=== PATIENT | male | born 1995 | race Caucasian/White ===

== ENCOUNTER 2017-08-13 08:57 | Emergency (ER) | payer SELFPAY ==
[2017-08-13 09:10] VITALS: BP 144/88
--- NOTE | 2017-08-13 09:34 | RAD ---
HISTORY: Left-sided rib pain, status post fall COMPARISONS: None VIEWS: 7, Frontal view of the chest with frontal and oblique views of the left hemithorax FINDINGS: There is no displaced rib fracture or pneumothorax. The visualized lungs are clear. IMPRESSION: NO DISPLACED RIB FRACTURE OR PNEUMOTHORAX
--- NOTE | 2017-08-13 09:39 | UC ---
Truncal Trauma HPI - HPI Summary HPI Summary: left side ribs pain x 1 week s/p fall one week ago and his his lest side on a tree trunk pain on his left ribs, increase pain with movement, deep breathing no fever, no chills, no cough , no sob - History Of Current Complaint Chief Complaint: UCGeneralIllness Stated Complaint: LEFT SIDE RIB PAIN Time Seen by Provider: 08/13/17 09:07 Hx Obtained From: Patient Onset/Duration: Sudden Onset, Lasting Weeks - 1, Still Present Onset Of Pain: Post Accident - s/p fall Severity Initially: Moderate Severity Currently: Moderate Pain Intensity: 8 Mechanism Of Injury: Blunt Trauma, Fall From A Standing Position Aggravating Factor(s): Movement, Deep Breathing Alleviating factor(s): Rest Associated Signs And Symptoms: Negative: SOB, Chest Pain, Cough, Hematuria, Abdominal Pain, Fever, Nausea, Vomiting - Allergies/Home Medications Allergies/Adverse Reactions: Allergies Allergy/AdvReac Type Severity Reaction Status Date / Time No Known Allergies Allergy Verified 08/13/17 09:07 Home Medications: Home Medications NK [No Home Medications Reported] 08/13/17 [History Confirmed 08/13/17] PMH/Surg Hx/FS Hx/Imm Hx - Additional Past Medical History Additional PMH: obesity Other History Of: Negative For: HIV, Hepatitis B, Hepatitis C, Anticoagulant Therapy - Surgical History Surgical History: None - Family History Known Family History: Positive: Cardiac Disease, Hypertension - Social History Alcohol Use: Occasionally Substance Use Type: None Smoking Status (MU): Heavy Every Day Tobacco Smoker Type: Cigarettes Amount Used/How Often: 1/2 PPD Length of Time of Smoking/Using Tobacco: 3 Years Have You Smoked in the Last Year: Yes Review of Systems Constitutional: Negative Skin: Negative Eyes: Negative ENT: Negative Respiratory: Negative Cardiovascular: Negative Gastrointestinal: Negative Is Patient Immunocompromised?: No All Other Systems Reviewed And Are Negative: Yes Physical Exam Triage Information Reviewed: Yes Appearance: Ill-Appearing, Pain Distress, Obese Vital Signs: Initial Vital Signs Temp 97.9 F 08/13/17 09:05 Pulse 79 08/13/17 09:05 Resp 18 08/13/17 09:05 BP 144/88 08/13/17 09:05 Pulse Ox 100 08/13/17 09:05 Vital Signs Reviewed: Yes Eyes: Positive: Conjunctiva Clear ENT: Positive: Normal ENT inspection, Hearing grossly normal, Pharynx normal Neck exam: Normal Neck: Positive: Supple, Nontender, No Lymphadenopathy Respiratory: Positive: Chest non-tender, Lungs clear, Normal breath sounds, No respiratory distress Cardiovascular: Positive: RRR, No Murmur, Pulses Normal Abdominal Exam: Normal Abdomen Description: Positive: Nontender, Soft. Negative: CVA Tenderness (R), CVA Tenderness (L), Distended, Guarding Bowel Sounds: Positive: Present Musculoskeletal: Positive: Other: - left ribs/ trunck : no swelling, no ecchymosis, + tenderness left anterior ribs, Skin Exam: Normal Diagnostics - Laboratory Diagnostic Studies Completed/Ordered: xray left ribs: IMPRESSION: NO DISPLACED RIB FRACTURE OR PNEUMOTHORAX Truncal Trauma Course/Dx - Differential Dx/Diagnosis Provider Diagnoses: contusion left ribs Discharge - Sign-Out/Discharge Documenting (check all that apply): Discharge/Admit/Transfer - Discharge Plan Condition: Stable Disposition: HOME Patient Education Materials: Rib Contusion (ED) Referrals: Non Staff,Doctor [Primary Care Provider] - If Needed - Billing Disposition and Condition Condition: STABLE Disposition: HOME
== END 2017-08-13 09:47 | disposition home or self-care (01) ==
LOC: UCCORT 08:57
DX: S20.20XA Contusion of thorax, unspecified, initial encounter (principal); W19.XXXA Unspecified fall, initial encounter; W22.8XXA Striking against or struck by other objects, initial encounter; Y92.9 Unspecified place or not applicable; F17.210 Nicotine dependence, cigarettes, uncomplicated
CPT/HCPCS: 99211; G0463

== ENCOUNTER 2018-07-16 12:05 | Emergency (ER) | payer BC, OTHER ==
[2018-07-16 12:56] VITALS: BP 156/82
--- NOTE | 2018-07-16 13:09 | UC ---
Abdominal Pain Male HPI - HPI Summary HPI Summary: pt s/o sudden onset of generalized malaise, abdominal discomfort, diarrhea and "just feeling off". Pt unsure of fever but does report that he has not had a "solid BM in 1 month". Pt has PCP but has not seen him in "forever". - History of Current Complaint Chief Complaint: UCGI Stated Complaint: SORE THROAT, HEADACHE, DIARRHEA Time Seen by Provider: 07/16/18 12:58 Hx Obtained From: Patient Onset/Duration: Sudden Onset, Lasting Hours, Still Present Timing: Constant Severity Initially: Mild Severity Currently: Mild Pain Intensity: 4 Location: Diffuse Radiates: No Character: Aching, Colicy, Cramping, Dull Aggravating Factor(s): Food Alleviating Factor(s): Spontaneous Resolution Associated Signs And Symptoms: Positive: Diarrhea - Risk Factors Testicular Torsion: Negative Cardiac Risk Factors: Negative - Allergies/Home Medications Allergies/Adverse Reactions: Allergies Allergy/AdvReac Type Severity Reaction Status Date / Time No Known Allergies Allergy Verified 07/16/18 12:50 PMH/Surg Hx/FS Hx/Imm Hx Previously Healthy: Yes Other History Of: Negative For: HIV, Hepatitis B, Hepatitis C, Anticoagulant Therapy - Surgical History Surgical History: None - Family History Known Family History: Positive: Cardiac Disease, Hypertension - Social History Occupation: Employed Full-time Lives: With Family Alcohol Use: Weekly Substance Use Type: Marijuana Substance Use Comment - Amount & Last Used: daily Smoking Status (MU): Heavy Every Day Tobacco Smoker Type: Cigarettes Amount Used/How Often: 1/2 PPD Length of Time of Smoking/Using Tobacco: 3 Years Have You Smoked in the Last Year: Yes - Immunization History Vaccination Up to Date: No Review of Systems All Other Systems Reviewed And Are Negative: Yes Constitutional: Positive: Chills, Fatigue Skin: Positive: Negative Eyes: Positive: Negative ENT: Positive: Negative - pt stated that his ST has resolved since onset yesterday . Respiratory: Positive: Cough Cardiovascular: Positive: Negative Gastrointestinal: Positive: Abdominal Pain, Diarrhea, Nausea Genitourinary: Positive: Negative Motor: Positive: Negative Neurovascular: Positive: Negative Musculoskeletal: Positive: Myalgia Neurological: Positive: Negative Psychological: Positive: Negative Is Patient Immunocompromised?: No Physical Exam Triage Information Reviewed: Yes Appearance: Well-Appearing, Obese Vital Signs: Initial Vital Signs Temp 97.3 F 07/16/18 12:51 Pulse 69 07/16/18 12:51 Resp 20 07/16/18 12:51 BP 156/82 07/16/18 12:51 Pulse Ox 100 07/16/18 12:51 Vital Signs Reviewed: Yes Eye Exam: Normal ENT Exam: Normal Dental Exam: Normal Neck exam: Normal Respiratory Exam: Normal Cardiovascular Exam: Normal Abdomen Description: Positive: Other: - LUQ tenderness Musculoskeletal Exam: Normal Neurological Exam: Normal Psychological Exam: Normal Skin Exam: Normal Abd Pain Male Course/Dx - Differential Dx/Clinical Impression Differential Diagnosis/HQI/PQRI: Pancreatitis, Other - abdominal pain Provider Diagnosis: Abdominal pain, Frequent loose stools, Malaise Discharge - Sign-Out/Discharge Documenting (check all that apply): Patient Departure All imaging exams completed and their final reports reviewed: No Studies - Discharge Plan Condition: Stable Disposition: HOME Patient Education Materials: Loperamide (By mouth), Acute Abdominal Pain (ED) Forms: *Work Release Referrals: Mc Alvarado MD [Primary Care Provider] - As Soon As Possible Additional Instructions: PLEASE FOLLOW UP WITH YOUR PCP SOON POSSIBLE. - Billing Disposition and Condition Condition: STABLE Disposition: Home
== END 2018-07-16 13:42 | disposition home or self-care (01) ==
LOC: UCCORT 12:05
DX: R10.9 Unspecified abdominal pain (principal); R53.81 Other malaise; R19.5 Other fecal abnormalities; R19.7 Diarrhea, unspecified; J02.9 Acute pharyngitis, unspecified; R51 Headache; R11.0 Nausea; F17.210 Nicotine dependence, cigarettes, uncomplicated
CPT/HCPCS: 99212; G0463